=== PATIENT | female | born 1940 | race African-American/Black ===

== ENCOUNTER → 2017-01-01 | Outpatient (CLI) | payer MEDICARE, OTHER ==
[~2017-01-01] MED LIST: BARIUM SULFATE 340 GM SUSPENSION. PO ONE; BARIUM SULFATE 60% 355 ML SUSP PO ONE; SIMETHICONE/SOD BICARB/CITRIC ACID PACKET. PO ONE
--- NOTE | 2017-01-01 10:57 | RAD ---
Indication abdominal discomfort. History of reflux. In anticipation of an upper GI pulmonary film of the abdomen was obtained. The abdominal gas pattern is normal. There are advanced degenerative changes seen associated with both hips. 17 fluoroscopic images were obtained associated with the examination. Fluoroscopy time associated with the study was 1.9 minutes. The upper GI was performed and double contrast fashion. The initiation of swallowing was normal. Occasional tertiary contractions were seen associated with the esophagus. No constricting lesion or mass was seen. A moderate-sized hiatus hernia was noted. The gastric rugal fold are slightly prominent. This is nonspecific but mild inflammation is not excluded. A gastric mass was not seen. The duodenal bulb appeared normal. The remaining portion of the duodenum and visualized small bowel also appeared normal. IMPRESSION: Moderate sized hiatus hernia. Minimally prominent rugal folds. No gastric mass or duodenal abnormality seen
== END | disposition home or self-care (01) ==
LOC: RAD 10:13
PROVIDERS: ATTEND Internal Medicine Gastroenterology
DX: R10.10 Upper abdominal pain, unspecified (principal); Z87.19 Personal history of other diseases of the digestive system
CPT/HCPCS: 74241

== ENCOUNTER → 2017-01-10 | Day surgery (SDC) | payer MEDICARE, OTHER ==
[~2017-01-10] MED LIST changes: +ACET-704 PO; +ASPI81TA50 PO; -BARIUM SULFATE 340 GM SUSPENSION. PO ONE; -BARIUM SULFATE 60% 355 ML SUSP PO ONE; +CLON0.3T PO; +CYCL5TAB PO; +DORZ10DR3 EACHEYE; +EZET10TA3 PO; +IV RINGERS,LACTATED 1000ML 1,000 ML IV SCH; +LIDOCAINE 2% PF Vial for OR 5 ML VIAL. ONE; +OMEP40CA5 PO; +POTA10TA10 PO; +PROPOFOL 20 ML IV ONE; -SIMETHICONE/SOD BICARB/CITRIC ACID PACKET. PO ONE; +SIMV40TA3 PO; +TELM40TA PO; +TRAV5DRO EACHEYE
[2017-01-10 11:00] VITALS: BP 152/78
== END | disposition home or self-care (01) ==
LOC: ENDOS 09:37
PROVIDERS: ATTEND Internal Medicine Gastroenterology
DX: K29.50 Unspecified chronic gastritis without bleeding (principal); K44.9 Diaphragmatic hernia without obstruction or gangrene; E78.00 Pure hypercholesterolemia, unspecified; I10 Essential (primary) hypertension; K21.9 Gastro-esophageal reflux disease without esophagitis; M19.90 Unspecified osteoarthritis, unspecified site; Z90.710 Acquired absence of both cervix and uterus; Z87.39 Personal history of other diseases of the musculoskeletal system and connective tissue
CPT/HCPCS: 43235; 99156; J2704

== ENCOUNTER → 2017-05-28 | Outpatient (CLI) | payer MEDICARE, OTHER ==
[2017-01-10 11:00] VITALS: BP 152/78
[~2017-05-28] MED LIST changes: +EZET10TA18 PO; -EZET10TA3 PO; -IV RINGERS,LACTATED 1000ML 1,000 ML IV SCH; -LIDOCAINE 2% PF Vial for OR 5 ML VIAL. ONE; -POTA10TA10 PO; +POTA10TA12 PO; -PROPOFOL 20 ML IV ONE
--- NOTE | 2017-05-28 13:43 | RAD ---
DATE: 05/28/2017 EXAM: DIGITAL SCREEN BILAT W/CAD HISTORY: 77-year-old female for routine screening mammogram. COMPARISON: Prior mammograms from 2016, 2015 and 2013. This study was interpreted with the benefit of Computerized Aided Detection (CAD). FINDINGS: Breast Density: HETERO The breast parenchyma Is heterogeneiously dense, which could reduce sensitivity of mammography. Breast parenchyma level C. No suspicious calcifications, spiculated masses or architectural distortion. Bilateral benign calcifications. IMPRESSION: No mammographic evidence of malignancy. Stable mammogram. BI-RADS CATEGORY: 2 BENIGN FINDING(S) RECOMMENDED FOLLOW-UP: 12M 12 MONTH FOLLOW-UP PQRS compliance statement: Patient information was entered into a reminder system with a target due date 05/28/2018 for the next mammogram. Mammography is a sensitive method for finding small breast cancers, but it does not detect them all and is not a substitute for careful clinical examination. A negative mammogram does not negate a clinically suspicious finding and should not result in delay in biopsying a clinically suspicious abnormality. "Our facility is accredited by the [employer] Mammography Program."
== END | disposition home or self-care (01) ==
LOC: MAMMO 12:40
PROVIDERS: ATTEND Family Medicine
DX: Z12.31 Encounter for screening mammogram for malignant neoplasm of breast (principal)
CPT/HCPCS: G0202; 77067